=== PATIENT | female | born 1975 | race African-American/Black ===

== ENCOUNTER 2017-05-21 19:46 | Emergency (ER) ==
[2017-05-21 19:55] VITALS: BP 132/83; TEMP 99.6; BMI 29.2
--- NOTE | 2017-05-21 20:18 | ED.PDOC ---
General ED Provider: Dr. KRISTYN BARKER Chief Complaint: Earache Stated Complaint: Pain both ears worse left than right. Making her Nauseated Time Seen by Physician: 20:17 Mode of Arrival: Walk-In Information Source: Patient Exam Limitations: No limitations Primary Care Provider: Lang JEFF Nursing and Triage Documentation Reviewed and Agree: Yes Reviewed sepsis parameters & appropriate labs ordered?: No System Inflammatory Response Syndrome: Not Applicable Sepsis Protocol: For patient's 13 years and over: Temp is 96.8 and below OR 101 and greater Pulse >90 BPM Resp >20/minute Acutely Altered Mental Status Are patient's symptoms suggestive of a new infection, such as: -Pneumonia -Skin, Soft Tissue -Endocarditis -UTI -Bone, Joint Infection -Implantable Device -Acute Abdominal Infection -Wound Infection -Meningitis -Blood Stream Catheter Infection -Unknown System Inflammatory Response Syndrome: Not Applicable Review of Systems - Review Of Systems Constitutional: Reports: No symptoms Eyes: Reports: No symptoms Ears, Nose, Mouth, Throat: Reports: Ear pain. Denies: Ear discharge Respiratory: Reports: No symptoms Cardiac: Reports: No symptoms GI: Reports: No symptoms : Reports: No symptoms Musculoskeletal: Reports: No symptoms Skin: Reports: No symptoms Neurological: Reports: No symptoms Endocrine: Reports: No symptoms Hematologic/Lymphatic: Reports: No symptoms All Other Systems: Reviewed and Negative Past Medical History - Past Medical History Previously Healthy: Yes Endocrine: Reports: None Cardiovascular: Reports: DVT Respiratory: Reports: PE Hematological: Reports: None Gastrointestinal: Reports: None Genitourinary: Reports: None Neuro/Psych: Reports: Anxiety Musculoskeletal: Reports: None Cancer: Reports: None Last Menstrual Period: hysterectomy - Surgical History General Surgical History: Reports: Hysterectomy, Tubal ligation - Family History Family History: Reports: Unknown - Social History Smoking Status: Never smoker Hx Substance Use: No Alcohol Screening: Occasionally Physical Exam - Physical Exam Appearance: Ill-appearing Ill-appearing: Mild Pain Distress: Severe Eyes: SULEMA, EOMI, Conjunctiva clear ENT: Erythema Respiratory: Airway patent, Breath sounds clear, Breath sounds equal, Respirations nonlabored Cardiovascular: RRR, Pulses normal, No rub, No murmur GI/: Soft, Nontender, No masses, Bowel sounds normal, No Organomegaly Musculoskeletal: Normal strength, ROM intact, No edema, No calf tenderness Skin: Warm, Dry, Normal color Neurological: Sensation intact, Motor intact, Alert, Oriented Psychiatric: Anxious Critical Care Note - Critical Care Note Total Time (mins): 0 Course - Course Vital Signs: Temp Pulse Resp BP Pulse Ox 05/21/17 19:47 99.6 F 100 H 20 132/83 96 Departure - Departure Time of Disposition: 20:30 Disposition: HOME SELF-CARE Discharge Problem: Otitis media Qualifiers: Otitis media type: serous Chronicity: acute Laterality: bilateral Recurrence: not specified as recurrent Qualified Code(s): H65.03 - Acute serous otitis media , bilateral Instructions: Ear Infection (ED) Condition: Stable Pt referred to PMD for follow-up: Yes IPMP verified?: No Additional Instructions: Take Pain medications as prescribed. Follow up with PCP in 3 -5 days Have your protime checked in 3-5 days Prescriptions: Amoxicillin [Amoxil] 500 mg PO TID #21 capsule Fluconazole [Diflucan] 150 mg PO ONCE #1 tablet Tramadol HCl [Ultram] 50 mg PO Q6H PRN #14 tablet PRN Reason: Severe Pain Allergies/Adverse Reactions: Allergies hydromorphone [From Dilaudid] Adverse Reaction (Verified 05/21/17 19:56) Home Medications: Ambulatory Orders Albuterol Sulfate 0.083% Neb [Albuterol 0.083% Neb] 1 vial NEB RTQ4H PRN Albuterol Sulfate [Proventil Hfa] 6.7 gm IH Q4HR PRN 05/21/17 Amoxicillin [Amoxil] 500 mg PO TID #21 capsule 05/21/17 Fluconazole [Diflucan] 150 mg PO ONCE #1 tablet 05/21/17 Tramadol HCl [Ultram] 50 mg PO Q6H PRN #14 tablet 05/21/17 Warfarin Sodium [Coumadin] 10 mg PO BEDTIME 05/21/17 Disposition Discussed With: Patient
[2017-05-21] MEDS ORDERED: KEFLEX PO STA (20:27)
[2017-05-21] MEDS ORDERED: NORCO 5-325 PO STA (20:27)
[2017-05-21] MEDS ORDERED: ULTRAM PO STA (20:42)
== END 2017-05-21 21:18 | disposition home or self-care (01) ==
LOC: ED 19:46
DX: H65.03 Acute serous otitis media, bilateral (principal)
CPT/HCPCS: 36415; 85610; 99282

== ENCOUNTER 2018-01-21 14:45 | Outpatient (CLI) ==
--- NOTE | 2018-01-21 15:38 | US ---
EXAM: Ultrasound of the soft tissue neck. History: Right neck mass. Technique: Multiple sonographic images through the soft tissue neck were obtained. Color duplex Dop pler was used to interrogate vascular flow. Findings / impression: Within the subcutaneous soft tissues of the posterior right neck just below t he skull, there is a 0.6 cm x 0.2 cm x 0.5 cm well circumscribed oval benign appearing soft tissue no dule. This is probably a benign lymph node or subcutaneous cyst.
== END 2018-01-21 14:46 | disposition home or self-care (01) ==
LOC: RAD 14:45
PROVIDERS: ATTEND Physician Assistant
DX: R22.1 Localized swelling, mass and lump, neck (principal)

== ENCOUNTER 2018-01-24 23:53 | Outpatient (CLI) | END 2018-01-24 23:54 | disposition home or self-care (01) | LOC: LAB 23:53 | PROVIDERS: ATTEND Physician Assistant | DX: Z51.81 Encounter for therapeutic drug level monitoring (principal); Z79.01 Long term (current) use of anticoagulants | CPT/HCPCS: 36415; 85610 ==

== ENCOUNTER 2018-01-29 17:51 | Emergency (ER) ==
[2018-01-29 17:57] VITALS: TEMP 99.3; BMI 26.6
--- NOTE | 2018-01-29 19:33 | ED.PDOC ---
General ED Provider: Dr. KRISTYN BARKER Chief Complaint: Abdominal Pain Stated Complaint: Patient is a 42 year old female who comes to the ER with mild pelvic pain and discharge that is white with an odor. She states that she has had this before and was treated with flagel. Denies any itching. States that she is on warfarin for history of DVT. Time Seen by Physician: 19:29 Mode of Arrival: Walk-In Information Source: Patient Exam Limitations: No limitations Nursing and Triage Documentation Reviewed and Agree: Yes Does patient meet sepsis criteria?: No System Inflammatory Response Syndrome: Not Applicable Sepsis Protocol: For patient's 13 years and over: Temp is 96.8 and below OR 101 and greater Pulse >90 BPM Resp >20/minute Acutely Altered Mental Status Are patient's symptoms suggestive of a new infection, such as: -Pneumonia -Skin, Soft Tissue -Endocarditis -UTI -Bone, Joint Infection -Implantable Device -Acute Abdominal Infection -Wound Infection -Meningitis -Blood Stream Catheter Infection -Unknown Complaint Exam - Complaint/Exam Patient Complains of: Reports: Vaginal discharge Onset/Duration: 2 days Symptoms Are: Still present Timing: Constant Initial Severity: Mild Current Severity: Mild Location of Pain: Reports: Suprapubic Character: Reports: Dull Aggravating: Reports: None Associated Signs and Symptoms: Reports: Vaginal discharge (with itching ) Abdominal Findings: Present: Other (mild suprapubic tenderness ) Vaginal Exam: Present: Discharge Differential Diagnoses: Other (vaginitis ) Review of Systems - Review Of Systems Constitutional: Reports: No symptoms Eyes: Reports: No symptoms Ears, Nose, Mouth, Throat: Reports: No symptoms Respiratory: Reports: No symptoms Cardiac: Reports: No symptoms GI: Reports: No symptoms : Reports: Discharge Musculoskeletal: Reports: No symptoms Skin: Reports: No symptoms Neurological: Reports: No symptoms Endocrine: Reports: No symptoms Hematologic/Lymphatic: Reports: No symptoms All Other Systems: Reviewed and Negative Past Medical History - Past Medical History Previously Healthy: Yes Endocrine: Reports: None Cardiovascular: Reports: DVT Respiratory: Reports: PE Hematological: Reports: None Gastrointestinal: Reports: None Genitourinary: Reports: None Neuro/Psych: Reports: Anxiety Musculoskeletal: Reports: None Cancer: Reports: None Last Menstrual Period: hysterectomy - Surgical History General Surgical History: Reports: Hysterectomy, Tubal ligation - Family History Family History: Reports: Unknown - Social History Smoking Status: Never smoker Hx Substance Use: No Alcohol Screening: Occasionally Physical Exam - Physical Exam Appearance: Well-appearing Ill-appearing: None Pain Distress: None Neck: Supple Respiratory: Airway patent, Breath sounds clear, Breath sounds equal, Respirations nonlabored Cardiovascular: RRR, Pulses normal, No rub, No murmur GI/: Soft, Tender (mild suprapubic ) Musculoskeletal: Normal strength Skin: Warm, Dry Neurological: Alert, Oriented Psychiatric: Anxious Critical Care Note - Critical Care Note Total Time (mins): 0 Course - Course Orders, Labs, Meds: Lab Review 01/29/18 01/29/18 01/29/18 19:34 19:34 20:43 Urine Color Yellow Urine Clarity Clear Urine pH 7.0 Ur Specific [place] 1.015 Urine Protein Negative Urine Glucose (UA) Negative Urine Ketones Negative Urine Blood Negative Urine Nitrite Negative Urine Bilirubin Negative Urine Urobilinogen 0.2 Ur Leukocyte Esterase Negative Clue Cells (Wet Prep) None seen Trichomonas (Wet Prep) None seen Vaginal WBC Few C.trachomatis DNA (DORIAN) Negative N.gonorrhoeae DNA (DORIAN) Negative SANDRA Preparation No fungal elements Orders Category Date Time Status CHLAMYDIA/GC AMPLIFICATION Stat LAB 01/29/18 19:34 Completed CULTURE [GENITAL CULTURE] Stat LAB 01/29/18 20:43 Received SANDRA PREP Stat LAB 01/29/18 20:43 Completed URINALYSIS C & S IF INDICATED Stat LAB 01/29/18 19:34 Completed WET PREP Stat LAB 01/29/18 20:43 Completed Vital Signs: Temp Pulse Resp BP Pulse Ox 01/29/18 20:19 137/95 H 01/29/18 17:52 99.3 F 80 20 145/101 H 100 Departure - Departure Time of Disposition: 20:02 Disposition: HOME SELF-CARE Discharge Problem: Vaginal irritation, Discharge of vagina Instructions: Vaginitis (ED) Condition: Stable Pt referred to PMD for follow-up: Yes IPMP verified?: No Additional Instructions: Take over the counter Probiotics Do not use Douching or any agents for cleaning your darlyn area as it my cause more irrigation. Follow up with PCP in 3 days Allergies/Adverse Reactions: Allergies hydromorphone [From Dilaudid] Adverse Reaction (Verified 01/29/18 17:59) steroid Adverse Reaction (Uncoded 01/29/18 18:00) Home Medications: Ambulatory Orders Albuterol Sulfate 0.083% Neb [Albuterol 0.083% Neb] 1 vial NEB RTQ4H PRN Albuterol Sulfate [Proventil Hfa] 6.7 gm IH Q4HR PRN 05/21/17 Warfarin Sodium [Coumadin] 10 mg PO BEDTIME 05/21/17 Clonazepam 1 mg PO BID 01/29/18 Disposition Discussed With: Patient
[2018-01-29 20:19] VITALS: BP 137/95
== END 2018-01-29 21:31 | disposition home or self-care (01) ==
LOC: ED 17:51
DX: N89.8 Other specified noninflammatory disorders of vagina (principal); R10.2 Pelvic and perineal pain; Z79.01 Long term (current) use of anticoagulants; Z86.718 Personal history of other venous thrombosis and embolism
CPT/HCPCS: 36415; 81001; 87070; 87210; 87800; 99283

== ENCOUNTER 2018-02-03 19:19 | Outpatient (CLI) | END 2018-02-03 19:20 | disposition home or self-care (01) | LOC: LAB 19:19 | PROVIDERS: ATTEND Physician Assistant | DX: Z51.81 Encounter for therapeutic drug level monitoring (principal); Z79.01 Long term (current) use of anticoagulants | CPT/HCPCS: 36415; 85610 ==

== ENCOUNTER 2018-02-14 22:20 | Outpatient (CLI) | END 2018-02-14 22:21 | disposition home or self-care (01) | LOC: LAB 22:20 | PROVIDERS: ATTEND Physician Assistant | DX: Z51.81 Encounter for therapeutic drug level monitoring (principal); Z79.01 Long term (current) use of anticoagulants | CPT/HCPCS: 36415; 85610 ==

== ENCOUNTER 2018-05-06 07:18 | Outpatient (CLI) | payer MEDICAID, OTHER ==
[2018-02-14 22:50] VITALS: BMI 25.4
== END 2018-05-06 07:19 | disposition home or self-care (01) ==
LOC: LAB 07:18
PROVIDERS: ATTEND Nurse Practitioner Family
DX: I10 Essential (primary) hypertension (principal); Z79.01 Long term (current) use of anticoagulants; Z86.718 Personal history of other venous thrombosis and embolism; Z86.711 Personal history of pulmonary embolism
CPT/HCPCS: 36415; 80061; 85610

== ENCOUNTER 2018-07-18 21:27 | Emergency (ER) ==
[2018-07-18 21:39] VITALS: BP 119/80; TEMP 98.3; BMI 26.1
== END 2018-07-18 21:52 | disposition left against medical advice (07) ==
LOC: ED 21:27
DX: M25.552 Pain in left hip (principal); M79.662 Pain in left lower leg; M79.89 Other specified soft tissue disorders; W10.9XXA Fall (on) (from) unspecified stairs and steps, initial encounter; Z86.718 Personal history of other venous thrombosis and embolism

== ENCOUNTER 2018-08-13 15:53 | Outpatient (CLI) | END 2018-08-13 15:54 | disposition home or self-care (01) | LOC: RHC-LAB 15:53 | PROVIDERS: ATTEND Nurse Practitioner Family | DX: I10 Essential (primary) hypertension (principal); R63.5 Abnormal weight gain; R53.83 Other fatigue | CPT/HCPCS: 36415; 80053; 84443; 85025; 93005; 93010 ==

== ENCOUNTER 2018-08-13 15:57 | Outpatient (CLI) | END 2018-08-13 15:58 | disposition home or self-care (01) | LOC: CAR 15:57 | PROVIDERS: ATTEND Nurse Practitioner Family | DX: I10 Essential (primary) hypertension (principal); R63.5 Abnormal weight gain; R53.83 Other fatigue | CPT/HCPCS: 93005; 93010 ==